=== PATIENT | female | born 1975 | race Caucasian/White ===

== ENCOUNTER 2021-02-26 18:48 | Emergency (ER) | payer OTHER ==
[2021-02-26] MEDS ORDERED: ONDANSETRON ODT4 MG PO (21:52)
[2021-02-26] MEDS ORDERED: NAPROXEN500 MG PO (21:52)
[2021-02-26] MEDS ORDERED: VENTOLIN HFA18 GM INH (21:52)
== END 2021-02-27 00:30 | disposition home or self-care (01) ==
LOC: FER 18:48
DX: U07.1 COVID-19 (principal); F17.210 Nicotine dependence, cigarettes, uncomplicated; Z23 Encounter for immunization
CPT/HCPCS: M0243; Q0244; U0002